=== PATIENT | female | born 1970 | race Hispanic/Latino ===

== ENCOUNTER 2025-01-13 16:26 | Emergency (ER) | payer OTHER ==
[2025-01-13] MEDS ORDERED: Acetaminophen 325 MG TAB ONE (17:34)
== END 2025-01-13 17:40 | disposition home or self-care (01) ==
LOC: MADERS 16:26
DX: S52.572A Other intraarticular fracture of lower end of left radius, initial encounter for closed fracture (principal); X50.1XXA Overexertion from prolonged static or awkward postures, initial encounter
CPT/HCPCS: 29125; 99283